=== PATIENT | female | born 1995 | race Two or more races ===

== ENCOUNTER 2021-05-10 20:25 | Emergency (ER) | payer OTHER ==
[~2021-05-10] VITALS: Ht 175.3 cm; Wt 95.3 kg
[2021-05-10] MEDS ORDERED: ENVARSUS XR0.75 MG (20:31)
[2021-05-10] MEDS ORDERED: LEVOTHYROXINE25 MCG (20:31)
== END 2021-05-10 22:44 | disposition home or self-care (01) ==
LOC: ER 20:25 → EDBD 21:08 → ER 21:08
DX: N23 Unspecified renal colic (principal)

== ENCOUNTER 2021-05-13 00:26 | Inpatient (IN) | payer OTHER ==
[~2021-05-13] VITALS: Ht 167.6 cm; Wt 102.5 kg
[~2021-05-13 00:26] MED LIST: ENVARSUS XR0.75 MG; LEVOTHYROXINE25 MCG
== END 2021-05-19 14:38 | disposition home or self-care (01) | DRG 446 ==
LOC: ER 00:26 → SEC-K 09:22 → SURG 09:22
PROVIDERS: ADMIT Surgery; ATTEND Surgery
PROC: 0F798ZZ Dilation of Common Bile Duct, Via Natural or Artificial Opening Endoscopic (ICD-10-PCS; principal; 2021-05-14)
PROC: 0F798ZZ Dilation of Common Bile Duct, Via Natural or Artificial Opening Endoscopic (ICD-10-PCS; 2021-05-16)
PROC: 0DB78ZX Excision of Stomach, Pylorus, Via Natural or Artificial Opening Endoscopic, Diagnostic (ICD-10-PCS; 2021-05-16)
DX: K83.1 Obstruction of bile duct (principal); Z20.822 Contact with and (suspected) exposure to COVID-19; E03.8 Other specified hypothyroidism; K29.60 Other gastritis without bleeding